=== PATIENT | female | born 1970 | race Hispanic/Latino ===

== ENCOUNTER 2018-09-06 21:50 | Emergency (ER) | payer SELFPAY | END 2018-09-06 23:33 | disposition home or self-care (01) | LOC: ERS 21:50 | DX: N81.4 Uterovaginal prolapse, unspecified (principal); E11.9 Type 2 diabetes mellitus without complications; E03.9 Hypothyroidism, unspecified; Z79.899 Other long term (current) drug therapy | CPT/HCPCS: 99283 ==

== ENCOUNTER 2025-05-16 09:45 | Outpatient (CLI) | payer OTHER | END 2025-05-16 09:46 | disposition home or self-care (01) | LOC: BICMAMMO 09:45 → MERGE 09:45 → BICMAMMO 09:46 | PROVIDERS: ATTEND Internal Medicine | DX: Z12.31 Encounter for screening mammogram for malignant neoplasm of breast (principal); N64.89 Other specified disorders of breast | CPT/HCPCS: 77063; 77067 ==